=== PATIENT | male | born 1990 | race American Indian/Alaskan Native ===

== ENCOUNTER 2017-08-06 00:19 | Emergency (ER) | payer SELFPAY ==
[2017-08-06 00:20] VITALS: BMI 26.2
[2017-08-06 00:32] VITALS: BP 143/77; PULSE 64; RESP 18; TEMP 98.7; O2SAT 99
[2017-08-06] MEDS ORDERED: Penicillin G Benzathine 1.2 Mill Unit/2 ml Syr IM STA (01:01)
--- NOTE | 2017-08-06 01:02 | ED PDOC ---
Arrival/HPI - General Chief Complaint: ENT Problem Time Seen by Provider: 08/06/17 00:37 Historian: Patient - History of Present Illness Narrative History of Present Illness (Text): 08/06/17 00:58 27yo male present with sore throat, swollen glands, subjective fever, headache x days. He was given Zithromycin for strep throat this morning. Came to emergency department for the persistent sore throat. +Odynophagia. Deneis nausea , vomiting, abdominal pain, dysphagoia, sick contact, any other complaint. Past Medical History - Provider Review Nursing Documentation Reviewed: Yes - Psychiatric Hx Depression: No Hx Emotional Abuse: No Hx Physical Abuse: No Hx Substance Use: No - Suicidal Assessment Feels Threatened In Home Enviroment: No Family/Social History - Physician Review Nursing Documentation Reviewed: Yes Family/Social History: Unknown Family HX Smoking Status: Never Smoked Hx Alcohol Use: Yes Frequency of alcohol use: Socially Hx Substance Use: No Hx Substance Use Treatment: No Allergies/Home Meds Allergies/Adverse Reactions: Allergies No Known Allergies Allergy (Verified 08/06/17 00:27) Home Medications: Home Meds Medication Instructions Recorded Confirmed Unobtainable 08/06/17 08/06/17 Review of Systems - Physician Review All systems were reviewed & negative as marked: Yes - Review of Systems Constitutional: Normal Eyes: Normal ENT: Sore Throat Respiratory: Normal Cardiovascular: Normal Gastrointestinal: Normal Genitourinary Male: Normal Musculoskeletal: Normal Skin: Normal Neurological: Normal Endocrine: Normal Hemo/Lymphatic: Normal Psychiatric: Normal Physical Exam Vital Signs Reviewed: Yes Vital Signs Temp Pulse Resp BP Pulse Ox 08/06/17 00:28 98.7 F 64 18 143/77 99 Temperature: Afebrile Blood Pressure: Normal Pulse: Regular Respiratory Rate: Normal Appearance: Positive for: Well-Appearing, Non-Toxic, Comfortable Pain Distress: None Mental Status: Positive for: Alert and Oriented X 3 - Systems Exam Head: Present: Atraumatic, Normocephalic Pupils: Present: PERRL Extroacular Muscles: Present: EOMI Conjunctiva: Present: Normal Mouth: Present: Moist Mucous Membranes Pharnyx: Present: EXUDATE, TONSILS ENLARGED, Peritonsilar Swelling. No: ERYTHEMA, Uvular Deviation, Muffled/Hoarse Voice, Strider, Soft Palate/Uvular Edema Neck: Present: Normal Range of Motion Respiratory/Chest: Present: Clear to Auscultation, Good Air Exchange. No: Respiratory Distress, Accessory Muscle Use Cardiovascular: Present: Regular Rate and Rhythm, Normal S1, S2. No: Murmurs Abdomen: Present: Normal Bowel Sounds. No: Tenderness, Distention, Peritoneal Signs Back: Present: Normal Inspection Upper Extremity: Present: Normal Inspection. No: Cyanosis, Edema Lower Extremity: Present: Normal Inspection. No: Edema Neurological: Present: GCS=15, CN II-XII Intact, Speech Normal Skin: Present: Warm, Dry, Normal Color. No: Rashes Psychiatric: Present: Alert, Oriented x 3, Normal Insight, Normal Concentration Medical Decision Making ED Course and Treatment: 08/06/17 01:20 27yo male with sore throat. He was noted to be controlling his secretion in emergency department. He was afebrile and hemodyanmically stable. No uvula deviation was noted. Exudate and peritonsillar swelling was noted. He is already on Zithro. He will be tx in emergency department with Alyssa CRUZ. DC home and advised to continue with his medication as was directed. Referred to his PMD. TRT emergency department or any new or worsening symptoms. - Medication Orders Current Medication Orders: Discontinued Medications Dexamethasone (Decadron Inj) 10 mg IM STAT STA Stop: 08/06/17 01:02 Ibuprofen (Motrin Tab) 400 mg PO STAT STA Stop: 08/06/17 01:03 Penicillin G Benzathine (Bicillin L-A Inj) 1,200,000 units IM STAT STA PRN Reason: Protocol Stop: 08/06/17 01:02 Disposition/Present on Arrival - Present on Arrival Any Indicators Present on Arrival: No History of DVT/PE: No History of Uncontrolled Diabetes: No Urinary Catheter: No History of Decub. Ulcer: No History Surgical Site Infection Following: None - Disposition Have Diagnosis and Disposition been Completed?: Yes Diagnosis: Acute tonsillitis Disposition: HOME/ ROUTINE Disposition Time: : Patient Plan: Discharge Condition: STABLE Discharge Instructions (ExitCare): Tonsillitis (ED) Additional Instructions: Follow up with your doctor Continue with your medication Return to Ed for any new or worsening symptoms Referrals: [facility] [Outside] - Follow up with primary Forms: [employer] (Chinese)
== END 2017-08-06 02:15 | disposition home or self-care (01) ==
LOC: ED 00:19
DX: J03.90 Acute tonsillitis, unspecified (principal)
CPT/HCPCS: 96372; 99282; J0561; J1100

== ENCOUNTER 2017-09-22 23:52 | Emergency (ER) | payer BC ==
[2017-09-23] VITALS: BMI 29.2
[2017-09-23 00:03] VITALS: BP 115/68; PULSE 70; RESP 18; TEMP 98.8; O2SAT 96
[2017-09-23] MEDS ORDERED: Penicillin G Benzathine 1.2 Mill Unit/2 ml Syr IM STA (00:31)
--- NOTE | 2017-09-23 00:42 | ED PDOC ---
Arrival/HPI - General Chief Complaint: ENT Problem Time Seen by Provider: 09/22/17 23:59 Historian: Patient - History of Present Illness Narrative History of Present Illness (Text): 09/23/17 00:20 A 27 year old male presents to the emergency department complaining of sore throat discomfort for the past couple days. Patient also reports a low grade fever earlier. Denies any difficulty swallowing. Patient denies any nausea, vomiting, diarrhea, abdominal pain, shortness of breath or any other complaints at this time. Time/Duration: < week Symptom Onset: Sudden Symptom Course: Unchanged Activities at Onset: Rest Context: Home Past Medical History - Provider Review Nursing Documentation Reviewed: Yes - Cardiac Hx Cardiac Disorders: No - Pulmonary Hx Respiratory Disorders: No - Neurological Hx Neurological Disorder: No - HEENT Hx HEENT Disorder: No - Renal Hx Renal Disorder: No - Endocrine/Metabolic Hx Endocrine Disorders: No - Hematological/Oncological Hx Blood Disorders: No - Integumentary Hx Dermatological Disorder: No - Musculoskeletal/Rheumatological Hx Musculoskeletal Disorders: No - Gastrointestinal Hx Gastrointestinal Disorders: No - Genitourinary/Gynecological Hx Genitourinary Disorders: No - Psychiatric Hx Depression: No Hx Emotional Abuse: No Hx Physical Abuse: No Hx Substance Use: No - Anesthesia Hx Anesthesia: No Hx Anesthesia Reactions: No Hx Malignant Hyperthermia: No - Suicidal Assessment Feels Threatened In Home Enviroment: No Family/Social History - Physician Review Nursing Documentation Reviewed: Yes Family/Social History: No Known Family HX Smoking Status: Never Smoked Hx Alcohol Use: Yes Hx Substance Use: No Hx Substance Use Treatment: No Allergies/Home Meds Allergies/Adverse Reactions: Allergies No Known Allergies Allergy (Verified 09/23/17 00:01) Review of Systems - Physician Review All systems were reviewed & negative as marked: Yes - Review of Systems Constitutional: Fevers (low grade) ENT: Sore Throat Respiratory: absent: SOB Gastrointestinal: absent: Abdominal Pain, Diarrhea, Nausea, Vomiting Physical Exam Vital Signs Reviewed: Yes Vital Signs Temp Pulse Resp BP Pulse Ox 09/23/17 00:02 98.8 F 70 18 115/68 96 09/23/17 00:01 98.8 F 70 18 115/68 96 Temperature: Afebrile Blood Pressure: Normal Pulse: Regular Respiratory Rate: Normal Appearance: Positive for: Well-Appearing, Non-Toxic, Comfortable Pain Distress: None Mental Status: Positive for: Alert and Oriented X 3 - Systems Exam Head: Present: Atraumatic, Normocephalic Pupils: Present: PERRL Extroacular Muscles: Present: EOMI Conjunctiva: Present: Normal Mouth: Present: Moist Mucous Membranes Pharnyx: Present: ERYTHEMA (tonsils b/l), EXUDATE (b/l tonsil) Neck: Present: Normal Range of Motion, Other (supple; mild anterior cervical adenopathy). No: Meningeal Signs Respiratory/Chest: Present: Clear to Auscultation, Good Air Exchange. No: Respiratory Distress, Accessory Muscle Use Cardiovascular: Present: Regular Rate and Rhythm, Normal S1, S2. No: Murmurs Abdomen: Present: Normal Bowel Sounds. No: Tenderness, Distention, Peritoneal Signs Back: Present: Normal Inspection Upper Extremity: Present: Normal Inspection. No: Cyanosis, Edema Lower Extremity: Present: Normal Inspection. No: Edema Neurological: Present: GCS=15, CN II-XII Intact, Speech Normal Skin: Present: Warm, Dry, Normal Color. No: Rashes Psychiatric: Present: Alert, Oriented x 3, Normal Insight, Normal Concentration Medical Decision Making ED Course and Treatment: 09/23/17 00:40 Impression: A 27 year old male with sore throat discomfort and low grade fever. Plan: -- Bicillin, Decadron -- Reassess and disposition Prior Visits: Notes and results from previous visits were reviewed. Patient was last seen in the emergency department on 08/06/17 for evaluation of sore throat, swollen glands, subjective fever and headache. Progress Notes: 09/23/17 00:45 On re-evaluation, patient feels better and is in no acute distress. I have discussed the results and plan with the patient, who expresses understanding. Patient in agreement with plan to be discharged home. Patient is stable for discharge. Patient was instructed to follow up with physician or return if symptoms worsen or new concerning symptoms arise. - Medication Orders Current Medication Orders: Discontinued Medications Dexamethasone (Decadron Inj) 10 mg IM ONCE ONE Stop: 09/23/17 00:33 Last Admin: 09/23/17 00:52 Dose: 10 mg IM Administration Charges Document 09/23/17 00:52 CRISTIN (Rec: 09/23/17 00:52 CRISTIN [id number]) Injection Site MAR Injection Site Right Gluteus Fox Charges for Administration # of IM Administrations 1 Penicillin G Benzathine (Bicillin L-A Inj) 1,200,000 units IM STAT STA PRN Reason: Protocol Stop: 09/23/17 00:32 Last Admin: 09/23/17 00:51 Dose: 1,200,000 units IM Administration Charges Document 09/23/17 00:51 CRISTIN (Rec: 09/23/17 00:52 CRISTIN [id number]) Injection Site MAR Injection Site Left Gluteus Fox Charges for Administration # of IM Administrations 1 - Scribe Statement The provider has reviewed the documentation as recorded by the Scribe Kimani Lozano Provider Scribe Attestation: All medical record entries made by the Scribe were at my direction and personally dictated by me. I have reviewed the chart and agree that the record accurately reflects my personal performance of the history, physical exam, medical decision making, and the department course for this patient. I have also personally directed, reviewed, and agree with the discharge instructions and disposition. Disposition/Present on Arrival - Present on Arrival Any Indicators Present on Arrival: No History of DVT/PE: No History of Uncontrolled Diabetes: No Urinary Catheter: No History of Decub. Ulcer: No History Surgical Site Infection Following: None - Disposition Have Diagnosis and Disposition been Completed?: Yes Diagnosis: Tonsillitis Disposition: HOME/ ROUTINE Disposition Time: 00:50 Patient Plan: Discharge Condition: STABLE Discharge Instructions (ExitCare): Tonsillitis (ED) Additional Instructions: Drink cool liquids/take meds as prescribed/follow up with your doctor this week Prescriptions: Amoxicillin [Amoxil 500 mg Cap] 500 mg PO TID #21 cap Forms: [employer] (Azeri)
== END 2017-09-23 01:10 | disposition home or self-care (01) ==
LOC: ED 23:52
DX: J03.90 Acute tonsillitis, unspecified (principal)
CPT/HCPCS: 96372; 99283; J0561; J1100

== ENCOUNTER 2019-01-09 13:06 | Inpatient (IN) | payer BC, OTHER ==
[2019-01-09 14:11] LABS: BASO # 0.03 K/mm3 (0.0-2.0); BASO % 0.3 % (0.0-3.0); EOS # 0.3 (0.0-0.7); EOS % 2.8 % (1.5-5.0); HEMOGLOBIN 15.6 g/dL (14.0-18.0); LYMPH # 4.3 (1.2-3.4); LYMPH % 36.4 % (22.0-35.0); MEAN CELL VOLUME 86.1 fl (80.0-105.0); MEAN CORPUSCULAR HEMOGLOBIN 28.2 pg (25.0-35.0); MEAN CORPUSCULAR HGB CONC 32.7 g/dl (31.0-37.0); MEAN PLATELET VOLUME 10.2 fl (7.0-11.0); MONO # 0.7 (0.1-0.6); MONO % 5.9 % (1.0-6.0); RBC 5.54 10^6/uL (3.5-6.1); RED CELL DISTRIBUTION WIDTH 13.7 % (11.5-14.5); WHITE BLOOD COUNT 11.8 10^3/uL (4.5-11.0)
[2019-01-09 14:13] LABS: ALBUMIN 4.4 g/dL (3.0-4.8); ALT/SGPT 25 U/L (7-56); AST/SGOT 40 U/L (17-59); BLOOD UREA NITROGEN 13 mg/dL (7-21); CALCIUM 10.2 mg/dL (8.4-10.5); GFR NON-AFRICAN AMERICAN > 60
[2019-01-09 14:24] LABS: B-TYPE NATRIURETIC PEPTIDE 359 pg/mL (0-450); TROPONIN I < 0.01 ng/mL
[2019-01-09 14:37] LABS: INR 1.02; PARTIAL THROMBOPLASTIN TIME 35.7 Seconds (26.9-38.3); PROTHROMBIN TIME 11.3 SECONDS (9.4-12.5)
[2019-01-09 15:01] LABS: URINE BILIRUBIN NEGATIVE (NEGATIVE); URINE BLOOD NEGATIVE (NEGATIVE); URINE GLUCOSE (UA) NEGATIVE (NEGATIVE); URINE LEUKOCYTE ESTERASE NEGATIVE Leu/uL (NEGATIVE); URINE PROTEIN NEGATIVE mg/dL (<30 mg/dL); URINE UROBILINOGEN 0.2 E.U./dL (<1 E.U./dL)
[2019-01-09 15:02] LABS: URINE APPEARANCE CLEAR (CLEAR); URINE COLOR YELLOW (YELLOW)
[2019-01-09 15:08] LABS: CK-MB 1.5 ng/mL (0.0-3.6)
[2019-01-09 15:25] LABS: BARBITURATES, UR NEGATIVE (NEGATIVE); BENZODIAZEPINES, UR NEGATIVE (NEGATIVE); OPIATES, UR NEGATIVE (NEGATIVE); PHENCYCLIDINE, UR NEGATIVE (NEGATIVE)
--- NOTE | 2019-01-09 15:51 | ED PDOC ---
Arrival/HPI - General Chief Complaint: Chest Pain Time Seen by Provider: 01/09/19 13:10 Historian: Patient - History of Present Illness Narrative History of Present Illness (Text): 01/09/19 13:30 28 year old male, with no significant past medical history, presents to the emergency department complaining of cough for the past 1 week. Patient reports he has been having intermittent shortness of breath, chest pain, and palpitatio ns since yesterday. He states he tried over the counter Shabana-Sibley and Theraflu without any improvement. Patient denies any fever, chills, abdominal pain, nausea, vomiting, diarrhea, constipation, urinary symptoms, back pain, neck pain, headache, dizziness, weakness, or any other complaints. Time/Duration: 1 week Symptom Onset: Gradual Symptom Course: Unchanged Activities at Onset: Light Context: Home Past Medical History - Provider Review Nursing Documentation Reviewed: Yes - Travel History Have you recently traveled outside [place] w/in the past 3 mons?: No - Tetanus Immunization Tetanus Immunization: Unknown - Cardiac Hx Cardiac Disorders: No - Pulmonary Hx Respiratory Disorders: No - Neurological Hx Neurological Disorder: No - HEENT Hx HEENT Disorder: No - Renal Hx Renal Disorder: No - Endocrine/Metabolic Hx Endocrine Disorders: No - Hematological/Oncological Hx Blood Disorders: No - Integumentary Hx Dermatological Disorder: No - Musculoskeletal/Rheumatological Hx Musculoskeletal Disorders: No - Gastrointestinal Hx Gastrointestinal Disorders: No - Genitourinary/Gynecological Hx Genitourinary Disorders: No - Psychiatric Hx Depression: No Hx Substance Use: No - Anesthesia Hx Anesthesia: No Hx Anesthesia Reactions: No Hx Malignant Hyperthermia: No - Suicidal Assessment Feels Threatened In Home Enviroment: No Family/Social History - Physician Review Nursing Documentation Reviewed: Yes Family/Social History: No Known Family HX Smoking Status: Never Smoked Hx Alcohol Use: Yes Frequency of alcohol use: Socially Hx Substance Use: No Hx Substance Use Treatment: No Allergies/Home Meds Allergies/Adverse Reactions: Allergies No Known Allergies Allergy (Verified 01/09/19 13:16) Home Medications: Home Meds Medication Instructions Recorded Confirmed No Known Home Med 01/09/19 01/09/19 Review of Systems - Physician Review All systems were reviewed & negative as marked: Yes - Review of Systems Constitutional: absent: Fatigue, Fevers, Other (chills) ENT: absent: Sore Throat, Sinus Congestion Respiratory: SOB, Cough Cardiovascular: Chest Pain, Palpitations Gastrointestinal: absent: Abdominal Pain, Constipation, Diarrhea, Nausea, Vomiting Genitourinary Male: absent: Dysuria, Frequency, Hematuria Musculoskeletal: absent: Back Pain, Neck Pain Neurological: absent: Headache, Dizziness, Focal Weakness Psychiatric: absent: Anxiety, Depression Physical Exam Vital Signs Reviewed: Yes Vital Signs Temp Pulse Resp BP Pulse Ox 01/09/19 14:01 115/56 L 01/09/19 14:00 149 H 01/09/19 13:06 98.2 F 82 18 127/95 H 99 Temperature: Afebrile Blood Pressure: Normal Pulse: Regular Respiratory Rate: Normal Appearance: Positive for: Well-Appearing, Non-Toxic, Comfortable Pain Distress: None Mental Status: Positive for: Alert and Oriented X 3 - Systems Exam Head: Present: Atraumatic, Normocephalic Pupils: Present: PERRL Extroacular Muscles: Present: EOMI Conjunctiva: Present: Normal Mouth: Present: Moist Mucous Membranes Neck: Present: Normal Range of Motion Respiratory/Chest: Present: Clear to Auscultation, Good Air Exchange. No: Respiratory Distress, Accessory Muscle Use Cardiovascular: Present: Irregular Rhythm, Tachycardic. No: Regular Rate and Rhythm, Murmurs, Rub, Muffled Abdomen: No: Tenderness, Distention, Peritoneal Signs, Rebound, Guarding Back: Present: Normal Inspection Upper Extremity: Present: Normal ROM Lower Extremity: Present: Normal ROM. No: CALF TENDERNESS Neurological: Present: GCS=15, Speech Normal Skin: Present: Warm, Dry, Normal Color. No: Rashes Psychiatric: Present: Alert, Oriented x 3 Medical Decision Making ED Course and Treatment: 01/09/19 13:30 Impression: 28 year old male presents complaining of cough for the past 1 week associated with intermittent shortness of breath, chest pain, and palpitations for the past few days. Plan: -- CT Angio Chest PE protocol -- EKG -- Labs -- Chest X-ray -- Cardizem -- Rapid Flu -- Urinalysis -- Reassess and disposition Prior Visits: Notes and results from previous visits were reviewed. Progress Notes: Patient immediately seen and evaluated by Dr. Vences. Patient was found to be in rapid a-fib at range of 140-160 BPM. 10mg of Cardizem administered IV. Patient's heart rate now is in the 80's. 01/09/19 16:59 cbc; wnl cmp; wnl trop; wnl mag; 2.3 bnp; 359 DIMer; elevated at 531 cxr; no infiltrate ct angio:FINDINGS: PULMONARY ARTERIES: Unremarkable. No pulmonary embolism. AORTA: No acute findings. No thoracic aortic aneurysm. No aortic atherosclerotic calcification or mural plaque present. LUNGS: Unremarkable. No nodule, mass or pulmonary consolidation. PLEURAL SPACES: Unremarkable. No effusion or pneumothorax. HEART: Unremarkable. No cardiomegaly. No significant pericardial effusion. LYMPH NODES: No lymphadenopathy. BONES, CHEST WALL: Unremarkable. No fracture or destructive lesion OTHER FINDINGS: Unremarkable. IMPRESSION: Unremarkable CT pulmonary angiogram. No pulmonary embolus. pt reassessment; resting comfortably in er; HR in the 90s. no distress. all results discussed with patient and family in depth; case discussed with dr. woods. accepts admission with congressional assistant consult. Dr. woods wants ICU consult. pt reassessment; pt continues to have paroxysmal atrial fibrillation. case discussed with dr. Juares (supply chain analyst): pt seen and evaluated at bedside; pt accepted to [facility]. pt will go to ICU on Cardizem drip Case discussed with Dr. Banegas in depth: He advised lovenox sq. first dose of lovenox ordered. All aspects of this case were discussed the attending of record. impression; rapid afib, new onset admit ICU Reassessment Condition: Re-examined, Improving,but remains with symptoms - Lab Interpretations Lab Results: PT 11.3 SECONDS (9.4-12.5) 01/09/19 13:45 INR 1.02 01/09/19 13:45 APTT 35.7 Seconds (26.9-38.3) 01/09/19 13:45 D-Dimer, Quantitative 531 ng/mlDDU (0-243) H 01/09/19 13:45 Troponin I < 0.01 ng/mL 01/09/19 13:45 NT-Pro-B Natriuret Pep 359 pg/mL (0-450) 01/09/19 13:45 Total Bilirubin 0.5 mg/dL (0.2-1.3) 01/09/19 13:45 AST 40 U/L (17-59) 01/09/19 13:45 ALT 25 U/L (7-56) 01/09/19 13:45 Alkaline Phosphatase 82 U/L (38-126) 01/09/19 13:45 Total Protein 8.8 g/dL (5.8-8.3) H 01/09/19 13:45 Albumin 4.4 g/dL (3.0-4.8) 01/09/19 13:45 Globulin 4.3 gm/dL 01/09/19 13:45 Albumin/Globulin Ratio 1.0 (1.1-1.8) L 01/09/19 13:45 Urine Color Yellow (YELLOW) 01/09/19 14:50 Urine Appearance Clear (CLEAR) 01/09/19 14:50 Urine pH 7.0 (4.7-8.0) 01/09/19 14:50 Ur Specific [place] 1.015 (1.005-1.035) 01/09/19 14:50 Urine Protein Negative mg/dL (<30 mg/dL) 01/09/19 14:50 Urine Glucose (UA) Negative mg/dL (NEGATIVE) 01/09/19 14:50 Urine Ketones Negative mg/dL (NEGATIVE) 01/09/19 14:50 Urine Blood Negative (NEGATIVE) 01/09/19 14:50 Urine Nitrate Negative (NEGATIVE) 01/09/19 14:50 Urine Bilirubin Negative (NEGATIVE) 01/09/19 14:50 Urine Urobilinogen 0.2 E.U./dL (<1 E.U./dL) 01/09/19 14:50 Ur Leukocyte Esterase Negative Cedric/uL (NEGATIVE) 01/09/19 14:50 I have reviewed the lab results: Yes - RAD Interpretation Radiology Orders: 01/09/19 13:37 CHEST PORTABLE [RAD] Stat 01/09/19 14:42 ANGIO CHEST PE PROTOCOL [CT] Stat Drum Drier: Radiologist - EKG Interpretation Interpreted by ED Physician: Yes Type: 12 lead EKG - Medication Orders Current Medication Orders: Discontinued Medications Diltiazem HCl (Cardizem) 10 mg IVP STAT STA Stop: 01/09/19 13:40 Last Admin: 01/09/19 14:00 Dose: 10 mg IVP Administration Document 01/09/19 14:00 CD (Rec: 01/09/19 14:01 CD [facility] [id number]) Charges for Administration # of IVP Administrations 1 DEC Pulse and Blood Pressure Document 01/09/19 14:00 CD (Rec: 01/09/19 14:01 CD [facility] [id number]) Pulse Pulse Rate (60-90 beats/min) 149 - Scribe Statement The provider has reviewed the documentation as recorded by the Scribe Brandon Thakkar Provider Scribe Attestation: All medical record entries made by the Scribe were at my direction and personally dictated by me. I have reviewed the chart and agree that the record accurately reflects my personal performance of the history, physical exam, medical decision making, and the department course for this patient. I have also personally directed, reviewed, and agree with the discharge instructions and disposition. Disposition/Present on Arrival - Present on Arrival Any Indicators Present on Arrival: No History of DVT/PE: No History of Uncontrolled Diabetes: No Urinary Catheter: No History of Decub. Ulcer: No History Surgical Site Infection Following: None - Disposition Have Diagnosis and Disposition been Completed?: Yes Diagnosis: Rapid atrial fibrillation Disposition: HOSPITALIZED Disposition Time: 15:06 Patient Plan: Admission Patient Problems: Current Active Problems Problem Status Onset Rapid atrial fibrillation Acute Condition: CRITICAL Referrals: PCP,NO [Primary Care Provider] - Follow up with primary Forms: [employer] (Danish)
[2019-01-09 16:02] LABS: T3 1.34 ng/mL (0.97-1.69)
--- NOTE | 2019-01-09 16:04 | CT ---
Date of service: 01/09/2019 PROCEDURE: CT Chest with contrast (Pulmonary Angiogram) HISTORY: cough/chest pain/ COMPARISON: None available. TECHNIQUE: Axial computed tomography images were obtained of the chest in the pulmonary arterial phase of enhancement. Coronal and sagittal reformatted images were created and reviewed. Intravenous contrast dose: 150 cc of Omni 350 Radiation dose: Total exam DLP = 566.09 mGy-cm. This CT exam was performed using one or more of the following dose reduction techniques: Automated exposure control, adjustment of the mA and/or kV according to patient size, and/or use of iterative reconstruction technique. FINDINGS: PULMONARY ARTERIES: Unremarkable. No pulmonary embolism. AORTA: No acute findings. No thoracic aortic aneurysm. No aortic atherosclerotic calcification or mural plaque present. LUNGS: Unremarkable. No nodule, mass or pulmonary consolidation. PLEURAL SPACES: Unremarkable. No effusion or pneumothorax. HEART: Unremarkable. No cardiomegaly. No significant pericardial effusion. LYMPH NODES: No lymphadenopathy. BONES, CHEST WALL: Unremarkable. No fracture or destructive lesion OTHER FINDINGS: Unremarkable. IMPRESSION: Unremarkable CT pulmonary angiogram. No pulmonary embolus.
--- NOTE | 2019-01-09 16:35 | RAD ---
Date of service: 01/09/2019 HISTORY: CP COMPARISON: No prior. TECHNIQUE: 1 view obtained. FINDINGS: LUNGS: No active pulmonary disease. PLEURA: No significant pleural effusion identified, no pneumothorax apparent. CARDIOVASCULAR: No aortic atherosclerotic calcification present. Normal cardiac size. No pulmonary vascular congestion. OSSEOUS STRUCTURES: No significant abnormalities. VISUALIZED UPPER ABDOMEN: Normal. OTHER FINDINGS: None. IMPRESSION: No active disease.
[2019-01-09 18:30] VITALS: BMI 32.5
[2019-01-09] MEDS ORDERED: diltiaZEM IVPB 100mg in NS 100 ML IV PRN (18:37)
[2019-01-09] MEDS ORDERED: Enoxaparin 100 mg Syringe SC STA (18:40)
--- NOTE | 2019-01-10 01:22 | CON ---
DATE: 01/09/2019 HISTORY OF PRESENT ILLNESS: The patient is a 28-year-old gentleman without any past medical history who started to complain on cough about a week ago, which was treated with antibiotic for it with resolution of cough few days later. However, yesterday, he start experiencing palpitations, pounding heartbeats, and some shortness of breath associated with it. He was concerned enough to go to ER next day, which is today, seeking medical attention. In the emergency room, he was found to have new onset of paroxysmal atrial fibrillation. He received two boluses of Cardizem IV and will be started on Cardizem drip shortly. Cardiology consult was requested from Dr. Pruitt, it is pending at present time. PAST MEDICAL HISTORY: None. SOCIAL HISTORY: No alcohol or illicit drug abuse. No tobacco smoking. FAMILY HISTORY: Noncontributory. MEDICATIONS AT HOME: None. ALLERGIES: NKDA. REVIEW OF SYSTEMS: Review of 12-organ system other than mentioned in history of present illness is negative. PHYSICAL EXAMINATION: VITAL SIGNS: Blood pressure 121/58, respiratory rate 15, and oxygen saturation 98%. ENT: Head and neck atraumatic. LUNGS: Clear to auscultation bilaterally. HEART: Regular rate and rhythm. S1 and S2 normal. ABDOMEN: Soft, nontender, and nondistended. MUSCULOSKELETAL: No C/C/E. NEUROLOGIC: The patient moves all extremities spontaneously. SKIN: Moist. PSYCHIATRIC: The patient is alert, awake, and oriented x3. LABORATORY DATA: Chest x-ray, no active pulmonary disease. CAT scan of the chest repeat protocol showed unremarkable imaging studies and no pulmonary embolus. WBC 11.8, hemoglobin 15.6, platelet count 275, and eosinophil count 2.8. Sodium 139, potassium 4.4, chloride 102, carbon dioxide 29, BUN 15, creatinine 1.1, glucose 90, and magnesium 2.3. AST 40, ALT 25, total bilirubin 0.5, alkaline phosphatase 82, and LDH 445. CPK . Troponin less than 0.01. ProBNP 359 (normal), albumin 4.4, TSH 0.94, and INR 1.02. Urine is negative for nitrite, blood, ketones, bilirubin, and leukocyte esterase. Urine toxicology screen negative for opiates, methadone, barbiturates, phencyclidine, amphetamines, benzodiazepines, cocaine, or marijuana. Influenza A and B are negative. ASSESSMENT AND PLAN: This is a 28-year-old gentleman with new onset of atrial fibrillation of unclear etiology. Besides ruling out pulmonary embolism, hyperthyroidism, and stimulants abuse, infectious etiology in otherwise healthy indivisual might potentially be considered after bout of URTI. It would be too early in the season for Lyme's disease though. The patient has mild leukocytosis, but he is afebrile and does not appear to be septic. Possibility of myocarditis after recent upper respiratory tract infection unlikely as it would be too early, but cant be ruled out completely, even though myocarditis would be classically associated with ventricular arrhythmias and not atrial ones. Thus echocardiogram will be ordered. Cardiology consult is pending. His CHADS-VASc score is 0-->decision about AC will be defered to communications department chair service. ccm time 40 min Jeovanny Juares MD [facility]
[2019-01-10] MEDS: Enoxaparin 120 mg Syringe SC SCH ×2 (09:00→21:17)
--- NOTE | 2019-01-10 10:09 | CON ---
DATE: 01/10/2019 REQUESTING PHYSICIAN: Dr. Diaz. REASON FOR CONSULTATION: Atrial fibrillation. HISTORY: This is a 28-year-old man with no significant past medical history who presents to emergency room with palpitations and was noted be in atrial fibrillation with rapid trigger responsive. Cardiac evaluation was requested. He states for the past 3-4 months, he has been bothered by nonproductive cough and has been treated with a variety of antibiotics. He has had partial improvement with this. Over the past several days, he has noticed a worsening cough and dyspnea. Yesterday, he also felt that his heart was beating rapidly and erratically. He presents to emergency room. He is noted to be in atrial fibrillation with rapid ventricular response. He was placed on IV Cardizem. He is seen lying in bed in the CCU. He is currently comfortable. He denies any chest pain or dyspnea at rest. He is unaware of any prior history of rhythm disorder. He takes no medications at home. He takes no wufr-heo-iobhuta supplements. He does work extremely long hours and is frequently fatigued. One to two times per week, he does drink alcohol to excess. PAST MEDICAL HISTORY: As noted. CURRENT MEDICATIONS: Include IV diltiazem at 2.5 mg per hour. He was also given 1 dose of Lovenox. ALLERGIES: NONE. SOCIAL HISTORY: As mentioned above. He denies drug use or tobacco use. He is single. 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 FAMILY HISTORY: Both parents are alive and well. His maternal grandmother reportedly had heart disease and bypass surgery in her late years. REVIEW OF SYSTEMS: A 10-point review of systems is otherwise unremarkable. PHYSICAL EXAMINATION: GENERAL: He is a young, healthy-appearing man. He appears somewhat anxious. VITAL SIGNS: His blood pressure is 115/70 with a pulse of 86 in atrial fibrillation, respirations are 14, he is afebrile. HEENT: Normocephalic, atraumatic. NECK: Supple. No JVD noted. CHEST: Clear to auscultation and percussion. HEART: PMI in normal position. Rhythm is irregular regular. No pathologic murmurs or gallops noted. ABDOMEN: Soft, nontender with bowel sounds. EXTREMITIES: No clubbing, cyanosis, or edema. SKIN: Warm and dry. PSYCHIATRIC: Normal mood and affect. NEUROLOGICAL: Alert and oriented x3. No gross motor or sensory deficits notable. DIAGNOSTIC DATA: White count is 11.5, hemoglobin and hematocrit 15.6 and 47.7, platelet count 275,000. PT/PTT 11.3 and 35.7. Potassium 4.4. BUN and creatinine 13 and 1.1. CK 450 with a negative MB fraction. Troponin is negative Thyroid panel was normal. Toxicology screen was negative. Chest x-ray reveals normal cardiac silhouette with clear lung whittaker. Electrocardiogram reveals atrial fibrillation with rapid ventricular response and secondary ST-T changes. IMPRESSION: Apparent recent onset atrial fibrillation, possibly due to periodic excessive alcohol intake versus known atrial fibrillation, no clear evidence of other underlying cause at the present time. RECOMMENDATIONS: IV diltiazem will be discontinued. Oral Cardizem will be initiated for heart rate control. Lovenox will be initiated as well in the event cardioversion is planned. If he did not convert to sinus rhythm spontaneously, a transesophageal cardiogram and electrocardioversion can be performed. An echocardiogram has been ordered and will be reviewed. Excessive alcohol abstinence was encouraged. Thank you for this consultation. I will be happy to follow along through his hospital course. Dameon Pruitt MD
--- NOTE | 2019-01-10 11:35 | CP.PCM.PN ---
<Augustin Coronado - Last Filed: 01/10/19 12:08> Subjective - Date & Time of Evaluation Date of Evaluation: 01/10/19 Time of Evaluation: 08:00 - Subjective Subjective: Augustin Coronado DO, PGY-2: ICU Progress Note Patient was seen and examined at bedside. Patient reports having no chest pain, but does experience some palpitations. No adverse events were noted. Objective - Vital Signs/Intake and Output Vital Signs (last 24 hours): Temp Pulse Resp BP Pulse Ox 98.1 F 80 42 H 115/70 96 01/09/19 20:18 01/10/19 09:00 01/10/19 08:10 01/10/19 07:56 01/10/19 08:10 - Medications Medications: Current Medications Diltiazem HCl (Cardizem) 60 mg PO Q8H JEN Last Admin: 01/10/19 09:00 Dose: 60 mg Enoxaparin Sodium (Lovenox) 120 mg SC Q12H JEN; Protocol Last Admin: 01/10/19 09:00 Dose: 120 mg - Labs Labs: 01/09/19 13:45 01/09/19 13:45 PT 11.3 SECONDS (9.4-12.5) 01/09/19 13:45 INR 1.02 01/09/19 13:45 APTT 35.7 Seconds (26.9-38.3) 01/09/19 13:45 - Constitutional Appears: Non-toxic, Other (somewhat anxious) - Head Exam Head Exam: ATRAUMATIC, NORMOCEPHALIC - Eye Exam Eye Exam: EOMI, Normal appearance - ENT Exam ENT Exam: Mucous Membranes Moist, Normal Oropharynx - Neck Exam Neck Exam: Normal Inspection - Respiratory Exam Respiratory Exam: Clear to Ausculation Bilateral, NORMAL BREATHING PATTERN. absent: Accessory Muscle Use - Cardiovascular Exam Cardiovascular Exam: Tachycardia, +S1, +S2 - GI/Abdominal Exam GI & Abdominal Exam: Soft, Normal Bowel Sounds - Extremities Exam Extremities Exam: Normal Inspection. absent: Calf Tenderness - Neurological Exam Neurological Exam: Alert, Awake, Oriented x3 - Psychiatric Exam Psychiatric exam: Anxious, Normal Affect - Skin Skin Exam: Dry, Intact, Normal Color, Warm Assessment and Plan - Assessment and Plan (Free Text) Assessment: 28 year old male with no known past medical history who presented to [facility] for dyspnea and palpitations and was found to be in atrial fibrillation with RVR. He was started on a Diltiazem drip in the ED and was transferred to the ICU for closer monitoring. Cardiology was consulted. Currently the patient is rate controlled on PO diltiazem and off the Diltiazem drip. 1) Atrial fibrillation with RVR - Diltiazem 60 mg q8h JEN - Lovenox 120 mg q12h - echocardiogram ordered 2) Elevated D-dimer - CT per PE protocol showed no PE - Recommend US of LEs to be performed to completely rule out thrombosis Case was reviewed and discussed with attending physician, Dr. Bolivar <Antoinette Bolivar - Last Filed: 01/10/19 12:18> Objective - Vital Signs/Intake and Output Vital Signs (last 24 hours): Temp Pulse Resp BP Pulse Ox 98.1 F 80 42 H 115/70 96 01/09/19 20:18 01/10/19 09:00 01/10/19 08:10 01/10/19 07:56 01/10/19 08:10 - Medications Medications: Current Medications Diltiazem HCl (Cardizem) 60 mg PO Q8H JEN Last Admin: 01/10/19 09:00 Dose: 60 mg Enoxaparin Sodium (Lovenox) 120 mg SC Q12H JEN; Protocol Last Admin: 01/10/19 09:00 Dose: 120 mg - Labs Labs: 01/09/19 13:45 01/09/19 13:45 PT 11.3 SECONDS (9.4-12.5) 01/09/19 13:45 INR 1.02 01/09/19 13:45 APTT 35.7 Seconds (26.9-38.3) 01/09/19 13:45 Addendum Addendum: 01/10/19 12:18 MICU Attending Addendum: Patient seen and examined with housestaff, case discussed on rounds. I agree with resident note above with the following additions/exceptions: 28M with new onset afib, otherwise healthy Transition off cardizem drip to PO as per cardio f/u cardio recs CHADVASC is 0 so would not given rn long term care anticoagulation if hr remains controlled with transfer to telemetry today Rest of care as per resident note above Antoinette Bolivar MD Attending Pulmonary Critical Care Sleep Medicine
--- NOTE | 2019-01-10 13:16 | PN ---
DATE: 01/10/2019 CRITICAL CARE PROGRESS NOTE SUBJECTIVE: This 28-year-old male was examined in CCU bed 5 in the presence of his aunt and his case was reviewed with himself and nurse Brittany registered nurse. The patient remains in atrial fibrillation rhythm and heart rate was in the 140s when I entered the room. The patient's IV Cardizem had been discontinued earlier today by forestry and wildlife manager Dr. Ayush Juares and the patient has been started on oral Cardizem. The patient denies any fever, chills, chest pain or shortness of breath. PHYSICAL EXAMINATION: GENERAL: He was lying in his bed, alert and oriented. VITAL SIGNS: Temperature of 98.6, respirations 16, pulse 147 and blood pressure 131/90. Pulse ox 98% room air. HEENT: Head: Normocephalic, atraumatic. Eyes: No icterus. Ears: Clear. Throat: Noninjected. NECK: Supple. HEART: Irregular S1, S2. No pathological rubs, murmurs or gallops. LUNGS: Clear. ABDOMEN: Soft. EXTREMITIES: No edema. SKIN: Without rash. NEUROLOGICAL: Intact. PSYCHOLOGICAL: Alert. VASCULAR: Legs warm to touch. IMPRESSION: New-onset atrial fibrillation in a 28-year-old male with no significant past medical history status post a recent upper respiratory tract infection that persisted over the past 2 months and no history of any shortness of breath or cardiac issues in his past. PLAN: The plan at present is to continue Cardizem 60 mg p.o. every 8 hours with Lovenox 120 mg subcutaneous every 12 hours. The patient is ordered to have a repeat EKG and an echocardiography to evaluate wall motion. He continues on heart-healthy diet. Based on the results, additional diagnostic workup and testing will be entertained as discussed with Dr. Juares. He may need to have cardioversion and be placed on his IV Cardizem drip if his cardiac rhythm should become erratic. Greater than 60 minutes was spent in the care and management, review of labs and discussion of this patient with forestry and wildlife manager and Dr. Dameon Pruitt from Cardiology as well as the patient and his family at bedside. All questions were answered. Tiffanie Diaz MD [facility] # [phone]
--- NOTE | 2019-01-10 14:47 | CARD ---
APPROVED REPORT Date of service: 01/10/2019 EXAM: Two-dimensional and M-mode echocardiogram with Doppler and color Doppler. INDICATION Atrial Fibrillation 2D DIMENSIONS Left Atrium (2D)4.1 (1.6-4.0cm)IVSd1.2 (0.7-1.1cm) LVDd4.7 (3.9-5.9cm)PWd1.2 (0.7-1.1cm) LVDs3.2 (2.5-4.0cm)FS (%) 31.6 % LVEF (%)59.6 (>50%) M-Mode DIMENSIONS Aortic Root3.50 (2.2-3.7cm)Aortic Cusp Exc.2.20 (1.5-2.0cm) Aortic Valve AoV Peak Tguqyopz298.0cm/Richard Peak GR.7mmHg Mitral Valve E/A ratio0.0 TDI E/Lateral E'0.0E/Medial E'0.0 Pulmonary Valve PV Peak Nlafghff50.7cm/sPV Peak Grad.2mmHg Tricuspid Valve TR Peak [id number]/sRAP [id number] Peak Gr.19mmHg [id number] LEFT VENTRICLE The left ventricle is normal size. There is mild concentric left ventricular hypertrophy. The left ventricular function is normal. The left ventricular ejection fraction is within the normal range. There is normal LV segmental wall motion. RIGHT VENTRICLE The right ventricle is normal size. There is normal right ventricular wall thickness. The right ventricular systolic function is normal. ATRIA The left atrium size is normal. The right atrium size is normal. The interatrial septum is intact with no evidence for an atrial septal defect. AORTIC VALVE The aortic valve is normal in structure. No aortic regurgitation is present. There is no aortic valvular stenosis. MITRAL VALVE The mitral valve is normal in structure. Mitral regurgitation is trace. TRICUSPID VALVE The tricuspid valve is normal in structure. There is mild tricuspid regurgitation. PULMONIC VALVE The pulmonary valve is normal in structure. GREAT VESSELS The aortic root is normal in size. The IVC is normal in size and collapses >50% with inspiration. PERICARDIAL EFFUSION There is no pleural effusion. There is no pericardial effusion. <Conclusion> Normal chamber size. Normal LV systolic function. Mild concentric LVH. Mild TR.
--- NOTE | 2019-01-10 17:36 | CARD ---
APPROVED REPORT Date of service: 01/09/2019 EKG Measurement Heart [id number] <Conclusion> Atrial fibrillation Abnormal ECG
--- NOTE | 2019-01-10 17:36 | CARD ---
APPROVED REPORT Date of service: 01/09/2019 EKG Measurement Heart [id number] <Conclusion> Atrial fibrillation with rapid ventricular response Minimal voltage criteria for LVH, may be normal variant Abnormal ECG
--- NOTE | 2019-01-10 22:02 | HP ---
DATE OF EXAM: 01/09/2019 HISTORY OF PRESENT ILLNESS: This 28-year-old male is admitted to critical care unit bed #5 on the afternoon of 01/09/2019. This patient presented to the [facility] ER earlier today with a chief complaint of chest discomfort secondary to palpitations. The patient states he has had a cough for the past several months. He was being treated by a physician at the [facility] in [place], [place]. He states he he had at least two rounds of oral antibiotics, but his cough persisted. The cough was disruptive even during his work hours. The patient was eating a seafood dinner on the evening of Thursday when he experienced pounding palpitations and shortness of breath. He felt it might be related to the volume of food he ate and then when it did not resolve after a good night's sleep, he presented to [facility] ER on 01/09/2019 for further evaluation of the above. PAST MEDICAL HISTORY: He states he has had no hospitalizations and no surgeries in his past. MEDICATIONS: He is on no prescription medication. ALLERGIES: HE DENIES ANY KNOWN ALLERGIES TO MEDICATION. FAMILY HISTORY: Noncontributory except that his grandmother had a open heart surgery approximately 3 years ago. All of his siblings are in good health. 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 He denies any history of smoking or illicit drug misuse, but states he drinks whiskey every weekend. REVIEW OF SYSTEMS: Constitutional: He denied any fever or chills. Head: No headache or seizure. Eyes: No change in visual acuity, he does wear glasses. Ears: No hearing loss. Throat: No swallowing difficulty. Neck: No stiffness. Cardiac: He denied any knowledge of valvular heart disease, rheumatic fever or any palpitations in his past or syncope. Pulmonary: No cough. No hemoptysis. Gastrointestinal: No hematemesis. No melena. Genitourinary: No dysuria. Skin: No rash. Vascular: No claudication. Psychological: No anxiety. No depression. Neurological: No knowledge of slurred speech or weakness or stroke. PHYSICAL EXAMINATION GENERAL: The patient was noted to be in atrial fibrillation rhythm on the hospital monitor and had, had previous episodes of tachycardia and had already received two rounds of IV Cardizem push. VITAL SIGNS: His temperature was 98.2, respirations 18, pulse 82 and blood pressure 127/95. His pulse had wavered between 101 and 149 irregular beats per minute. HEENT: Head; normocephalic, atraumatic. Eyes; no icterus. Ears; clear. Throat; noninjected. NECK: Supple. CARDIOPULMONARY: Heart; S1, S2. No pathological rubs, murmurs or gallops. LUNGS: Clear. ABDOMEN: Soft. EXTREMITIES: No edema. SKIN: Without rash. NEUROLOGICAL: Intact. PSYCHOLOGICAL: Alert. VASCULAR: Legs warm to touch. LABORATORY DATA: White count 11,800, hemoglobin 15.6, hematocrit 47.7, platelets 275,000. PT/INR 1.02, PTT 35.7. Sodium 139, potassium 4.4, chloride 102, bicarbonate 29, BUN 13, creatinine 1.1, random blood sugar 90, calcium 10.2. Phosphorous 3.6, magnesium 2.3. Bilirubin 0.5, AST 40, ALT 25 and alkaline phosphatase 82. CPK 450. Troponin less than 0.01. BNP 359, T4 7.7, T3 1.34, TSH 0.94, all normal. Urinalysis was unremarkable. Urine drug screen was entirely negative. Influenza A and B serologies were negative. I did review his chest x-ray. It showed no active disease, no infiltrate, no pneumothorax, no effusion, normal heart size. Chest CT was reviewed. There was no evidence of a pulmonary embolism. An EKG showed atrial fibrillation with nonspecific ST-T wave changes. IMPRESSION: A 28-year-old male with new-onset atrial fibrillation with rapid ventricular response status post a respiratory illness that has persisted over the past several months. PLAN: Admit this patient to the critical care unit where he will be started on IV Cardizem drip as well as Lovenox subcutaneous after discussion with Dr. Dameon Pruitt from Cardiology. The patient will be monitored regarding his response in the Intensive Care Unit and additional diagnostic workup and testing will be entertained. I have requested an echocardiogram and a heart-healthy diet as well as a repeat EKG and based on these results, additional workup will be entertained. All of the above was reviewed with Rakel Lozano, Physician Car Filler. Greater than 75 minutes was spent in the care management, review of labs, orders and x-rays and discussion of this patient with praveena Lozano. All questions were answered. Tiffanie Diaz MD [facility]
[2019-01-11] MEDS ORDERED: Benzocaine/Butamben/Tetracai 14-2-2% TOP Spray TOP ONE (07:37)
[2019-01-11] MEDS ORDERED: Midazolam 2 MG/2 ML VIAL ONE ×2 (08:09→08:56)
[2019-01-11] MEDS ORDERED: Naloxone 0.4 mg/ml Inj (Adult) ONE (08:09)
[2019-01-11] MEDS ORDERED: Flumazenil 0.1 mg/ml Inj (5ml) IVP ONE (08:09)
[2019-01-11] MEDS ORDERED: Midazolam 2 MG/2 ML VIAL IV ONE ×3 (08:39→08:55)
--- NOTE | 2019-01-11 10:56 | PN ---
DATE: 01/11/2019 SUBJECTIVE: This 28-year-old male was examined in the CCU bed #5 on the morning of 01/11/2019. He remains in atrial fibrillation on the bus driver/monitor. He still has episodes of rapid ventricular response and is on schedule today for a transesophageal echocardiogram for which he remains n.p.o. He denies any fever, chills, chest pain or shortness of breath and is receiving subcu Lovenox for anticoagulation prophylaxis. PHYSICAL EXAMINATION: VITAL SIGNS: Temperature was 98.1, respirations 19, pulse 62 to 133 and blood pressure 124/54 with a pulse ox of 97% room air. HEENT: Head is normocephalic, atraumatic. Eyes; no icterus. Ears; clear. Throat; non-injected. NECK: Supple. HEART: Irregular S1, S2. No pathological rubs, murmurs or gallops. LUNGS: Clear. ABDOMEN: Soft. EXTREMITIES: No edema. SKIN: Without rash. NEUROLOGIC: Intact. PSYCHOLOGIC: Alert and oriented x3. VASCULAR: Legs warm to touch. LABORATORY DATA: White count 11,800, hemoglobin 15.6, hematocrit 47.7, platelets 275,000. PT/INR 1.02, PTT 35.7. Sodium 139, K 4.4, chloride 102, bicarb 29, BUN 13, creatinine 1.1, random blood sugar 90, calcium 10.2. Phosphorous 3.6, magnesium 2.3. Bilirubin 0.5, AST 40, ALT 25, alk phos 82. Troponin less than 0.01. BNP 359. TSH 0.94, T3 1.34, total T3 1.34 and T4 7.7. Urinalysis was unremarkable. Urine drug screen was negative and influenza A and B serologies were negative. IMPRESSION: This is a 28-year-old male with new-onset atrial fibrillation with intermittent rapid ventricular response and also with recent viral-like illness and clinical obesity. PLAN: At present is to continue Cardizem 60 mg p.o. every 8 hours, Lovenox 120 mg subcu every 12 hours. The patient is on schedule for a transesophageal echocardiography and cardioversion will be considered based on his clinical progress and echocardiographic results. The patient was counseled regarding cessation of alcohol ingestion and weight reduction diet. Greater than 60 minutes were spent in the critical care management of this patient today in discussion with his family and nursing. All questions were answered. Tiffanie Diaz MD
--- NOTE | 2019-01-11 11:28 | CARD ---
APPROVED REPORT Date of service: 01/11/2019 EXAM: Two-dimensional and M-mode echocardiogram with Doppler and color Doppler. INDICATION Atrial Fibrillation Reason For Test : Rule out Intracardiac Thrombus. PROCEDURE After obtaining informed consent, patient underwent transesophageal echo in the ICU. Type of Sedation : Conscious Sedation Sedation was achieved with Versed, Fentanyl intravenously. Transesophageal probe was inserted and advanced into esophagus without difficulty. The PATRICIA was performed without complications. Synchronized Cardioversion acheived with 100 Joules after 1 attempt(s). Rhythm following Synchronized Cardioversion: Normal Sinus Rhythm Throughout the procedure, the blood pressure, pulse oximetry, cardiac rhythm, and rate were monitored. The patient tolerated the procedure without adverse effects. Recovery from conscious sedation was uneventful and vital signs were stable. LEFT VENTRICLE The left ventricle is normal size. There is normal left ventricular wall thickness. The left ventricular function is normal. The left ventricular ejection fraction is within the normal range. There is normal LV segmental wall motion. RIGHT VENTRICLE The right ventricle is normal size. The right ventricular systolic function is normal. ATRIA The left atrium size is normal. No thrombus was seen in the left atrial appendage. The right atrium size is normal. The interatrial septum is intact with no evidence for an atrial septal defect. AORTIC VALVE The aortic valve is normal in structure. No aortic regurgitation is present. There is no aortic valvular stenosis. MITRAL VALVE The mitral valve is normal in structure. There is no mitral valve stenosis. There is no mitral valve regurgitation noted. TRICUSPID VALVE The tricuspid valve is normal in structure. There is mild tricuspid regurgitation. PULMONIC VALVE The pulmonary valve is normal in structure. GREAT VESSELS The aortic root is normal in size. The ascending and descending thoracic aorta is normal in size. The IVC is normal in size and collapses >50% with inspiration. <Conclusion> Normal transesophageal echocardiogram. Successful cardioversion to NSR.
[2019-01-11] MEDS: diltiaZEM 120 mg/24 Hours CD Cap PO SCH (12:03)
--- NOTE | 2019-01-11 12:50 | PN ---
DATE: 01/11/2019 SUBJECTIVE: The patient is seen lying in bed in the CCU. He remains in atrial fibrillation with controlled rate. His echocardiogram reviewed yesterday reveals normal chamber size with borderline concentric LVH, normal LV systolic function, mild tricuspid regurgitation. CURRENT MEDICATIONS: Include Cardizem 60 mg every 8 hours as well as Lovenox 120 mg twice daily. PHYSICAL EXAMINATION: GENERAL: He is a muscular young man. VITAL SIGNS: His blood pressure is 124/50 with pulse of 70, in atrial fibrillation, respirations are 16. He is afebrile. HEENT: No JVD. CHEST: Clear to auscultation and percussion. HEART: PMI in normal position. No pathologic murmurs or gallops noted. ABDOMEN: Soft, nontender, normoactive bowel sounds. EXTREMITIES: No edema. DIAGNOSTIC DATA: Morning blood work pending. IMPRESSION: Atrial fibrillation appears to be recent onset, either known atrial fibrillation or possibly due to recent excess alcohol intake. RECOMMENDATIONS: His oral Cardizem will be continued for now. Plans will be made for transesophageal electrocardiogram with possible cardioversion this morning. Risks and benefits have been discussed in detail with him. Assuming this is successful, I would recommend oral anticoagulation for several weeks following discharge with outpatient followup. If his atrial fibrillation does not recur, this can then be discontinued. Avoidance of excessive alcohol use is recommended. Dameon Pruitt MD
--- NOTE | 2019-01-11 17:45 | CARD ---
APPROVED REPORT Date of service: 01/11/2019 EKG Measurement Heart [id number] <Conclusion> Normal sinus rhythm Minimal voltage criteria for LVH, may be normal variant Borderline ECG
[2019-01-11] MEDS ORDERED: Metoprolol 1 mg/ml Inj IVP ONE (17:50)
[2019-01-11] MEDS ORDERED: Metoprolol 1 mg/ml Inj ONE (17:57)
[2019-01-11 21:49] VITALS: O2SAT 98
[2019-01-12 05:41] VITALS: RESP 20
[2019-01-12] MEDS: diltiaZEM 120 mg/24 Hours CD Cap PO SCH (09:30)
[2019-01-12] MEDS ORDERED: guaiFENesin DM 100 mg-10 mg/5 ml UD PO ONE (10:50)
--- NOTE | 2019-01-12 11:25 | PN ---
DATE: 01/12/2019 SUBJECTIVE: The patient is seen lying in bed on telemetry. He is comfortable at the present time. He remains in sinus rhythm. CURRENT MEDICATIONS: Include Eliquis 5 mg twice a day and diltiazem CD 120 mg daily. OBJECTIVE: GENERAL: He is a muscular young man. VITAL SIGNS: His blood pressure is 118/76, the pulse is 76 and sinus respiration is 14. He is afebrile. HEENT: No JVD or bruits noted. CHEST: Clear to auscultation and percussion. HEART: Normal. No pathological gallops noted. ABDOMEN: Soft and nontender with normoactive bowel sounds. EXTREMITIES: No edema. DIAGNOSTIC DATA: Electrocardiogram reveals sinus rhythm with J point elevation, normal variant for age. IMPRESSION: Recently on atrial fibrillation, now sinus rhythm following electrocardioversion yesterday. Atrial fibrillation either due to recent heavier alcohol intake or known atrial fibrillation. RECOMMENDATIONS: His current medications will continue for now. If remains in sinus rhythm, eventual discontinuation of his Eliquis and diltiazem will be planned in 4-6 weeks, outpatient followup has been arranged. Avoidance of excessive alcohol intake was encouraged. Regular exercise and healthy diet was encouraged as well. Dameon Pruitt MD MTDD
[2019-01-12 12:05] VITALS: BP 133/76; PULSE 74; TEMP 97.9
--- NOTE | 2019-01-12 22:28 | CARD ---
APPROVED REPORT Date of service: 01/12/2019 EKG Measurement Heart [id number] <Conclusion> Normal sinus rhythm ST elevation, consider early repolarization- a normal variant Borderline ECG
--- NOTE | 2019-01-13 01:14 | DS ---
FINAL DIAGNOSIS: Atrial fibrillation, resolved. DISPOSITION: Home. FOLLOWUP: With Dr. Dameon Pruitt, Cardiology in his office in 1 week as requested. PROCEDURE PERFORMED: Transesophageal echo with cardioversion. DISCHARGE MEDICATIONS: Cardizem CD 120 mg p.o. daily, Eliquis 5 mg p.o. b.i.d., the patient was given 2 weeks supply of each and no refills. HOSPITAL COURSE: This 28-year-old male successfully completed a transesophageal echocardiogram which was reviewed that showed normal chamber size, normal LV systolic function, mild concentric left ventricular hypertrophy with mild tricuspid regurgitation and evaluation of his left atrium showed normal size, right atrium normal size and intra-atrial septum intact with no evidence of an intra-atrial septal defect. The patient was not noted to have any evidence of intra cardiac thrombus. He has one successful cardioversion and at the day of discharge, temperature was 98, respirations 20, pulse 77 and blood pressure 118/76 with a pulse ox of 98% on room air. telemetry monitor showed normal sinus rhythm. Discharge labs; white count 11,800, hemoglobin 15.6, hematocrit 47.7, and platelets 275,000. PT/INR 1.02, PTT 35.7. Sodium 139, K of 4.4, chloride 102, bicarb 29, BUN 13, creatinine 1.1, and random blood sugar 90. All liver function testing was normal including bilirubin 0.5, AST 40, ALT 25, and alk phos 82. All thyroid functions were normal including T4 of 7.7, T3 of 1.34, and TSH 0.94. Urinalysis was unremarkable. Urine drug screen was unremarkable and influenza serology A and B were negative. The patient was cleared for discharge to home by Dr. Dameon Pruitt from Cardiology both chest x-ray and chest CT was unremarkable. There was no evidence of a pulmonary embolism and no pneumonic infiltrate. The patient was interviewed at his bedside at the time of discharge with his mother, Supriya present as well as nurse Christina Morales, registered nurse. The patient's prescriptions were reviewed. All questions were answered and both were aware of the need to follow up with Dr. Dameon Pruitt to avoid caffeinated products to discontinue alcohol ingestion, weight reduction, exercise program and heart-healthy diet. Greater than 35 minutes was spent in the discharge management of this patient today in the presence of his family. All questions were answered. Tiffanie Diaz MD
== END 2019-01-12 13:56 | disposition home or self-care (01) | DRG 310 ==
LOC: ED 13:06 → ERH 18:22 → CCU 20:30 → 2RNO 01-11 21:37
PROVIDERS: ADMIT Internal Medicine; ATTEND Internal Medicine
PROC: B246ZZ4 Ultrasonography of Right and Left Heart, Transesophageal (ICD-10-PCS; 2019-01-11)
PROC: 5A2204Z Restoration of Cardiac Rhythm, Single (ICD-10-PCS; principal; 2019-01-11 08:44)
DX: I48.0 Paroxysmal atrial fibrillation (principal); I07.1 Rheumatic tricuspid insufficiency; R07.9 Chest pain, unspecified; R00.2 Palpitations; R06.02 Shortness of breath; D72.829 Elevated white blood cell count, unspecified; E66.9 Obesity, unspecified; Z68.32 Body mass index [BMI] 32.0-32.9, adult